=== PATIENT | female | born 1940 | race Caucasian/White ===

== ENCOUNTER → 2023-07-22 07:27 | Outpatient (REF) | payer OTHER, SELFPAY ==
[2023-07-22 10:31] LABS: Free T4 0.86 ng/dl (0.78-2.19)
[2023-07-22 10:45] LABS: Cortisol, Random 18.4 ug/dl; TSH 2.35 uIU/ml (0.47-4.68)
== END ==
LOC: HWLAB 07:27
PROVIDERS: ATTENDING PHYSICIAN Internal Medicine Medical Oncology; FAMILY PHYSICIAN Internal Medicine; REFERRING PHYSICIAN Internal Medicine
DX: C43.61 Malignant melanoma of right upper limb, including shoulder (principal)
CPT/HCPCS: 36415; 82533; 84439; 84443; 84481